=== PATIENT | female | born 1980 | race African-American/Black ===

== ENCOUNTER 2016-07-22 11:37 | Emergency (ER) | payer OTHER ==
[~2016-07-22] VITALS: Ht 165.1 cm; Wt 61.7 kg
[2016-07-22] MEDS ORDERED: [UNRECOGNIZED DRUG - CODE] AU (11:59)
[2016-07-22 13:17] VITALS: BP 114/50
== END 2016-07-22 14:04 | disposition home or self-care (01) ==
LOC: M ED 13:10
DX: H92.03 Otalgia, bilateral (principal)